=== PATIENT | female | born 1990 | race Caucasian/White ===

== ENCOUNTER → 2021-09-15 | Outpatient (CLI) | payer OTHER ==
--- NOTE | 2021-09-15 12:47 | XR ---
EXAMINATION TYPE: XR lumbar spine 2 or 3V DATE OF EXAM: 09/15/2021 CLINICAL HISTORY: Low back pain into left hip. TECHNIQUE: Frontal and lateral images of the lumbar spine are obtained. 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 The lumbar spine emir ws stable and satisfactory alignment without evidence of acute fracture or dislocation. Vertebral bod y heights and disk space heights remain within normal limits. The overlying soft tissue appears unrem arkable. IMPRESSION: As above.
== END | disposition home or self-care (01) ==
LOC: RADXRMAIN 09:19
PROVIDERS: ATTEND Family Medicine
DX: M54.50 Low back pain, unspecified (principal); M25.552 Pain in left hip
CPT/HCPCS: 72100